=== PATIENT | male | born 1995 | race American Indian/Alaskan Native ===

== ENCOUNTER 2021-10-29 20:20 | Emergency (ER) | payer SELFPAY ==
[2021-10-29] MEDS ORDERED: PENICILLIN V POTASSIUM 250 MG TAB PO ONE (22:35)
[2021-10-29] MEDS ORDERED: IBUPROFEN 800 MG TAB PO ONE (22:35)
[2021-10-29] MEDS ORDERED: HYDROcodone/ACETAMINOPHEN 5-325 MG TAB PO ONE (22:35)
--- NOTE | 2021-10-29 23:11 | Emergency Department Report ---
ED ENT HPI - General Chief complaint: Dental/Oral Stated complaint: TOOTHPAIN,SWOLLEN FACE Time Seen by Provider: 10/29/21 21:20 Source: patient Mode of arrival: Ambulatory Limitations: No Limitations - History of Present Illness Initial comments: 26-year-old male presenting with right foot pain. Patient reports has been experiencing pain in his right upper tooth for the past 3 days, but the swelling began 1 day ago. Reports history of a " bridge to tooth also was a follow-up for permanent t filling but never returned to the dentist". S patient describes his pain as sharp and throbbing, worse with chewing, he denies fever or chills, no headache no dizziness or vision changes, no nausea vomiting abdominal pain. MD complaint: tooth pain - Related Data Previous Rx's Medication Instructions Recorded Last Taken Type Benzocaine/Menthol/Zinc Chlor 11.9 gm MM QID PRN #1 tub 10/29/21 Unknown Rx [Orajel 3X Toothache-Gum Gel] Ibuprofen [Motrin 800 MG tab] 800 mg PO TID PRN #20 tablet 10/29/21 Unknown Rx Penicillin Vk [Veetids TAB] 500 mg PO QID 10 Days tablet 10/29/21 Unknown Rx traMADoL [Ultram 50 MG tab] 50 mg PO Q4HR PRN #12 tablet 10/29/21 Unknown Rx ED Dental HPI - General Chief complaint: Dental/Oral Stated complaint: TOOTHPAIN,SWOLLEN FACE Time Seen by Provider: 10/29/21 21:20 Source: patient Mode of arrival: Ambulatory Limitations: No Limitations - Related Data Previous Rx's Medication Instructions Recorded Last Taken Type Benzocaine/Menthol/Zinc Chlor 11.9 gm MM QID PRN #1 tub 10/29/21 Unknown Rx [Orajel 3X Toothache-Gum Gel] Ibuprofen [Motrin 800 MG tab] 800 mg PO TID PRN #20 tablet 10/29/21 Unknown Rx Penicillin Vk [Veetids TAB] 500 mg PO QID 10 Days tablet 10/29/21 Unknown Rx traMADoL [Ultram 50 MG tab] 50 mg PO Q4HR PRN #12 tablet 10/29/21 Unknown Rx ED Review of Systems ROS: Stated complaint: TOOTHPAIN,SWOLLEN FACE Other details as noted in HPI Constitutional: denies: chills, fever, weakness Eyes: denies: vision change ENT: dental pain. denies: ear pain Respiratory: denies: cough Cardiovascular: denies: chest pain Endocrine: denies: excessive sweating, intolerance to cold, intolerance to heat Gastrointestinal: denies: abdominal pain, nausea, vomiting Genitourinary: denies: frequency Musculoskeletal: denies: back pain, joint swelling, arthralgia Skin: denies: rash, lesions, change in color Neurological: denies: headache, weakness, numbness Psychiatric: denies: auditory hallucinations, visual hallucinations, homicidal thoughts, suicidal thoughts Hematological/Lymphatic: denies: easy bleeding, easy bruising ED Past Medical Hx - Social History Smoking Status: Current Some Day Smoker Substance Use Type: Alcohol, Marijuana - Medications Home Medications: Home Medications Medication Instructions Recorded Confirmed Last Taken Type Benzocaine/Menthol/Zinc Chlor 11.9 gm MM QID PRN #1 tub 10/29/21 Unknown Rx [Orajel 3X Toothache-Gum Gel] Ibuprofen [Motrin 800 MG tab] 800 mg PO TID PRN #20 tablet 10/29/21 Unknown Rx Penicillin Vk [Veetids TAB] 500 mg PO QID 10 Days tablet 10/29/21 Unknown Rx traMADoL [Ultram 50 MG tab] 50 mg PO Q4HR PRN #12 tablet 10/29/21 Unknown Rx ED Physical Exam - General Limitations: No Limitations, Other (Speech is clear, speaks without difficulty, no drooling, no true) General appearance: alert, in no apparent distress - Head Head exam: Present: atraumatic. Absent: normal inspection - Eye Eye exam: Present: normal appearance Pupils: Present: normal accommodation - Expanded ENT Exam Expanded Ear exam: Present: normal external inspection Teeth exam: Present: dental caries, dental tenderness #, other (There is right maxillary swelling, there is tenderness of the tooth #456, patient has diffuse dental decay and caries. No fluctuance, no palpable abscess with) 1 - Dental Tenderness, Other Throat exam: Positive: normal inspection. Negative: tonsillar erythema, tonsillomegaly, tonsillar exudate - Neck Neck exam: Present: full ROM. Absent: meningismus, lymphadenopathy - Respiratory Respiratory exam: Present: normal lung sounds bilaterally. Absent: respiratory distress - Cardiovascular Cardiovascular Exam: Present: regular rate, normal rhythm - Back Exam Back exam: Present: normal inspection, full ROM - Neurological Exam Neurological exam: Present: alert, oriented X3, CN II-XII intact, normal gait. Absent: motor sensory deficit - Psychiatric Psychiatric exam: Present: normal affect, normal mood. Absent: depressed - Skin Skin exam: Present: warm, dry, intact, normal color ED Course Vital Signs 10/29/21 20:28 Temperature 99.3 F Pulse Rate 78 Respiratory 18 Rate Blood Pressure 146/82 O2 Sat by Pulse 97 Oximetry ED Medical Decision Making - Medical Decision Making 26-year-old male presenting with right foot pain. Patient reports has been experiencing pain in his right upper tooth for the past 3 days, but the swelling began 1 day ago. Reports history of a " bridge to tooth also was a follow-up for permanent t filling but never returned to the dentist". S patient describes his pain as sharp and throbbing, worse with chewing, he denies fever or chills, no headache no dizziness or vision changes, no nausea vomiting abdominal pain. Vitals are stable, talking without difficulty, no use of associate dentist muscles, antibiotics given here pain management, no indication for abscess drainage at this time for patient can be discharged home with strict instructions to follow- up with a dentist. Patient remained stable nontoxic-appearing, afebrile, ambulating steadily without assistance. Gone over ED findings with patient as well as plan for follow-up. Also discussed return precautions with patient, all questions and concerns addressed. Patient is stable to be discharged follow-up outpatient. Audio voice dictation device used, hence the chart might contain some dictation errors, mispronunciations, wrong spelling and wrong verbiage. Critical care attestation.: If time is entered above; I have spent that time in minutes in the direct care of this critically ill patient, excluding procedure time. ED Disposition Clinical Impression: Dental abscess, Pain, dental Disposition: 01 HOME / SELF CARE / HOMELESS Is pt being admited?: No Does the pt Need Aspirin: No Condition: Stable Instructions: Dental Abscess Prescriptions: Ibuprofen [Motrin 800 MG tab] 800 mg PO TID PRN #20 tablet PRN Reason: Pain, Moderate (4-6) Benzocaine/Menthol/Zinc Chlor [Orajel 3X Toothache-Gum Gel] 11.9 gm MM QID PRN #1 tub PRN Reason: Pain , Severe (7-10) traMADoL [Ultram 50 MG tab] 50 mg PO Q4HR PRN #12 tablet PRN Reason: Pain Penicillin Vk [Veetids TAB] 500 mg PO QID 10 Days tablet Forms: Work/School Release Form(ED)
[2021-10-30 00:03] VITALS: BP 138/78
== END 2021-10-30 00:03 | disposition home or self-care (01) ==
LOC: ED 20:20
DX: K04.7 Periapical abscess without sinus (principal); K08.89 Other specified disorders of teeth and supporting structures; F17.200 Nicotine dependence, unspecified, uncomplicated
CPT/HCPCS: 99282